=== PATIENT | female | born 1950 | race Caucasian/White ===

== ENCOUNTER 2022-05-25 11:01 | Outpatient (CLI) | payer MEDICARE, BC, SELFPAY ==
--- NOTE | 2022-05-25 11:00 | CRLHL7_ITS ---
For Patients: As a result of the Century Cures Act, medical imaging exams and procedure reports are released immediately into your electronic medical record. You may view this report before your referring provider. If you have questions, please contact your health care provider. Indication: Follow-up lung cancer Technique: Noncontrast CT chest Comparison: CT chest 11/16/2021, 06/16/2021 Findings: Normal caliber thoracic aorta. Heart is normal. Coronary artery calcification no pericardial effusion. No effusion. Emphysema. Spiculated left upper lobe nodule measuring 6 millimeters series 3, image 16. Unchanged no effusion. Decreased size of the masslike opacity now measuring 3.4 centimeters in the right lower lobe in the area of 2 adjacent nodules is likely site posttreatment changes. No suspicious bone lesions. Impression: 1. Decreased size of masslike consolidation right lower lobe likely reflecting post treated. Stable spiculated 6 millimeter left upper lobe nodule. No new nodules. Please note that all CT scans at this facility use dose modulation, iterative reconstruction, and/or weight-based dosing when appropriate to reduce radiation dose to as low as reasonably achievable. Dictated by Shaista Anaya MD @ 05/25/2022 3:28:15 PM (Electronically Signed)
== END 2022-05-25 11:02 | disposition home or self-care (01) ==
LOC: CT 11:02
PROVIDERS: Visit Provider Physician Assistant
DX: C34.31 Malignant neoplasm of lower lobe, right bronchus or lung (principal); R91.1 Solitary pulmonary nodule
CPT/HCPCS: 71250